=== PATIENT | female | born 1995 | race Caucasian/White ===

== ENCOUNTER 2017-04-08 17:08 | Emergency (ER) | payer OTHER ==
[2017-04-08 17:36] VITALS: BP 117/79; PULSE 74; RESP 16; TEMP 100
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
== END 2017-04-08 18:55 | disposition home or self-care (01) ==
LOC: EC 17:08
DX: S00.431A Contusion of right ear, initial encounter (principal); S00.12XA Contusion of left eyelid and periocular area, initial encounter; S09.90XA Unspecified injury of head, initial encounter; F17.200 Nicotine dependence, unspecified, uncomplicated; Y04.8XXA Assault by other bodily force, initial encounter
CPT/HCPCS: 70450; 99283

== ENCOUNTER 2018-04-04 06:00 | Inpatient (IN) | payer OTHER ==
[2018-04-04] MEDS ORDERED: CARBOPROST TROMETHAMINE 250 MCG/ML 1 ML AMP IM PRN (06:57)
[2018-04-04] MEDS ORDERED: OXYTOCIN 10 UNIT/ML 1 ML VIAL IM PRN (06:57)
[2018-04-04] MEDS ORDERED: METHYLERGONOVINE 0.2 MG/ML 1 ML AMP IM PRN (06:57)
[2018-04-04] MEDS ORDERED: TERBUTALINE 1 MG/ML VIAL SQ PRN (06:57)
[2018-04-04] MEDS ORDERED: LIDOCAINE 1% (PF) 10 MG/ML (30 ML SDV) SQ PRN (06:57)
[2018-04-04] MEDS ORDERED: OXYTOCIN 20 UNITS/1000 ML NS 1,000 ML IV SCH (07:00)
[2018-04-04] MEDS ORDERED: LACTATED RINGERS 1,000 ML IV SCH (07:00)
[2018-04-04 07:02] VITALS: BMI 34.9
[2018-04-04] MEDS: LACTATED RINGERS 1,000 ML IV SCH ×3 (07:12→13:00)
[2018-04-04 07:26] LABS: Basophils # (A) 0.1 k/uL (0-0.2); Basophils % (A) 0 %; Eosinophils # (A) 0.6 k/uL (0-0.7); Eosinophils % (A) 4 %; HCT 39.4 % (34.0-46.0); HGB 13.9 gm/dL (11.4-16.0); Lymphocytes # (A) 2.3 k/uL (1.0-4.8); Lymphocytes % (A) 16 %; MCH 31.5 pg (25.0-35.0); MCHC 35.2 g/dL (31.0-37.0); MCV 89.5 fL (80.0-100.0); Mean Platelet Volume 8.4; Monocytes # (A) 0.8 k/uL (0-1.0); Monocytes % (A) 6 %; Neutrophils # (A) 10.1 k/uL (1.3-7.7); Neutrophils % (A) 71 %; Platelet Count 297 k/uL (150-450); RBC 4.41 m/uL (3.80-5.40); RDW 12.7 % (11.5-15.5); WBC 14.1 k/uL (4.0-11.0)
[2018-04-04] MEDS ORDERED: SODIUM CHLORIDE 0.9% 100 ML BAG ONE (12:26)
[2018-04-04] MEDS ORDERED: BUPIVACAINE (PF) 0.25% 30 ML VIAL ONE (12:26)
[2018-04-04] MEDS ORDERED: fentaNYL (PF) 50 MCG/ML 5 ML AMP ONE (12:26)
[2018-04-04] MEDS ORDERED: diphenhydrAMINE 25 MG CAP PO PRN (16:26)
[2018-04-04] MEDS ORDERED: diphenhydrAMINE 50 MG CAP PO PRN (16:26)
[2018-04-04] MEDS ORDERED: BENZOCAINE/MENTHOL SPRAY 1 GM/SPRAY AEROSOL TOPICAL PRN (16:26)
[2018-04-04] MEDS ORDERED: LANOLIN CREAM 5 GM TUBE TOPICAL PRN (16:26)
[2018-04-04] MEDS ORDERED: HYDROCORTISONE 2.5% RECTAL CREAM 30 GM TUBE RECTAL PRN (16:26)
[2018-04-04] MEDS ORDERED: ZOLPIDEM 5 MG TAB PO PRN (16:26)
[2018-04-04] MEDS ORDERED: diphenhydrAMINE 50 MG/ML 1 ML VIAL IVP PRN ×2 (16:26)
[2018-04-04] MEDS ORDERED: IBUPROFEN 600 MG TAB PO PRN (16:26)
[2018-04-04] MEDS ORDERED: ACETAMINOPHEN TAB 325 MG TAB PO PRN (16:26)
[2018-04-04] MEDS ORDERED: WITCH HAZEL 1 EACH MED..PAD TOPICAL PRN (16:26)
[2018-04-04] MEDS ORDERED: SIMETHICONE 80 MG CHEWABLE PO PRN (16:26)
--- NOTE | 2018-04-04 16:28 | P.HPOB ---
History of Present Illness H&P Date: 04/04/18 Chief Complaint: Intrauterine at term: Induction of labor Illicit is a 22-year-old at 39 weeks 6 days gestation arise for induction of labor. Her Precis course has been generally unremarkable and she is feeling well at this time. Pertinent labs O+ blood type Rh antibody was negative. Rubella was immune, hepatitis B surface antigen as well as RPR HIV and GBS were all negative. Currently she is dilated to 1 cm 80% effaced -2 station and artificial rupture membranes was performed and clear fluid is noted. Assessment intrauterine at term. Plan expect spontaneous vaginal delivery. Past Medical History Past Medical History: No Reported History History of Any Multi-Drug Resistant Organisms: None Reported Past Surgical History: No Surgical Hx Reported Past Anesthesia/Blood Transfusion Reactions: No Reported Reaction Past Psychological History: No Psychological Hx Reported Smoking Status: Former smoker Past Alcohol Use History: None Reported Past Drug Use History: None Reported - Past Family History Mother Family Medical History: No Reported History Medications and Allergies Home Medications Medication Instructions Recorded Confirmed Type Pnv No.95/Ferrous Fum/Folic AC 1 tab PO ONCE 04/04/18 04/04/18 History [ Multivitamin Tablet] Allergies Allergy/AdvReac Type Severity Reaction Status Date / Time No Known Allergies Allergy Verified 04/08/17 17:36 Exam Osteopathic Statement: *. No significant issues noted on an osteopathic structural exam other than those noted in the History and Physical/Consult. - Vital Signs Vital signs: Vital Signs Temp Pulse Resp BP Pulse Ox 04/04/18 06:59 96.9 F L 96 16 141/89 97 Intake and Output 04/04/18 04/04/18 04/04/18 06:59 14:59 22:59 Other: Weight 104.326 kg - OBG Physical Exam Breast: both: normal (no masses) Abdomen: bowel sounds normal, no diffuse tenderness, no bruit present, no guarding noted, no hepatomegaly, no splenomegaly, no mass Vulva: both: normal Vagina: normal moisture, no discharge Cervix: no lesion, no discharge Uterus: normal size, normal contour Adnexa: both: normal Anus/Rectum: normal perianal skin, no rectal mass, no hemorrhoids, heme negative Results Result Diagrams: 04/04/18 07:02 Abnormal Lab Results - Last 24 Hours (Table) 05/23/18 Range/Units 07:02 WBC 14.1 H (4.0-11.0) k/uL Neutrophils # 10.1 H (1.3-7.7) k/uL
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
[2018-04-04 17:11] VITALS: RESP 16
[2018-04-04] MEDS: SENNOSIDES-DOCUSATE SODIUM 1 EACH TAB PO SCH (20:16)
[2018-04-05] MEDS: SENNOSIDES-DOCUSATE SODIUM 1 EACH TAB PO SCH (08:49)
--- NOTE | 2018-04-05 08:52 | P.PNOBGVD ---
Subjective - Subjective Principal diagnosis: day 1 Interval history: Doing very well. Involuting, voiding, and tolerating her diet. Patient reports: Reports appetite normal, Reports voiding normally, Reports pain well controlled, Reports ambulating normally [place]: doing well Objective - Latest Vital Signs Latest vital signs: Vital Signs Temp Pulse Resp BP 04/05/18 04:00 97.8 F 84 16 108/71 04/04/18 23:54 98.2 F 82 16 127/74 04/04/18 20:00 98.2 F 98 16 132/82 04/04/18 18:36 97 F L 110 H 16 134/84 04/04/18 18:06 96 16 146/67 04/04/18 17:36 96 16 129/87 04/04/18 17:21 82 16 125/61 04/04/18 17:06 96 16 134/82 04/04/18 16:49 94 14 133/81 04/04/18 16:36 96.7 F L 99 18 138/85 Intake and Output 04/04/18 04/05/18 04/05/18 22:59 06:59 14:59 Intake Total 600 Balance 600 Intake: Oral 600 Other: # Voids 1 1 - Exam Lungs: bilateral: normal Chest: Normal S1, Normal S2 Extremities: Present: normal Abdomen: Present: normal appearance, soft Uterus: Present: normal, firm
[2018-04-05 16:55] VITALS: BP 139/82; PULSE 78; TEMP 98
--- NOTE | 2018-04-14 09:09 | P.DS ---
Providers Date of admission: 04/04/18 06:47 Expected date of discharge: 04/14/18 Attending physician: Vick Reynoso [facility] Course: List went home postop day 1. She was involuting, voiding, and she is tolerating her diet. Voices no complaints. Vital signs stable and afebrile. Physical exam is unchanged from earlier in the day. Assessment day 1. Plan discharged home follow up with me in 6 weeks. Patient Condition at Discharge: Good Plan - Discharge Summary New Discharge Prescriptions: No Action Pnv No.95/Ferrous Fum/Folic AC [ Multivitamin Tablet] 1 tab PO ONCE Discharge Medication List Pnv No.95/Ferrous Fum/Folic AC [ Multivitamin Tablet] 1 tab PO ONCE [History] Follow up Appointment(s)/Referral(s): Vick Reynoso DO [Doctor of Osteopathic Medicine] - 1 Week Activity/Diet/Wound Care/Special Instructions: No heavy lifting, limit stairs and driving, and pelvic rest. If any high temperatures, heavy bleeding, or severe pain call my office Discharge Disposition: HOME SELF-CARE
== END 2018-04-05 17:41 | disposition home or self-care (01) | DRG 775 ==
LOC: 4FBP 06:47
PROVIDERS: ADMIT Obstetrics & Gynecology; ATTEND Obstetrics & Gynecology
PROC: 3E0R3NZ Introduction of Analgesics, Hypnotics, Sedatives into Spinal Canal, Percutaneous Approach (ICD-10-PCS; principal; 2018-04-04)
PROC: 10E0XZZ Delivery of Products of Conception, External Approach (ICD-10-PCS; principal; 2018-04-04)
PROC: 0HQ9XZZ Repair Perineum Skin, External Approach (ICD-10-PCS; principal; 2018-04-04)
PROC: 00HU33Z Insertion of Infusion Device into Spinal Canal, Percutaneous Approach (ICD-10-PCS; principal; 2018-04-04)
PROC: 10907ZC Drainage of Amniotic Fluid, Therapeutic from Products of Conception, Via Natural or Artificial Opening (ICD-10-PCS; principal; 2018-04-04)
DX: O69.81X0 Labor and delivery complicated by cord around neck, without compression, not applicable or unspecified (principal); Z37.0 Single live birth; O70.0 First degree perineal laceration during delivery; Z3A.39 39 weeks gestation of pregnancy; Z87.891 Personal history of nicotine dependence
CPT/HCPCS: 85025; 88305; 88307

== ENCOUNTER → 2019-10-30 | Outpatient (CLI) | payer OTHER ==
--- NOTE | 2019-10-31 07:06 | US ---
EXAMINATION TYPE: Transabdominal DATE OF EXAM: 10/30/2019 4:10 PM COMPARISON: NONE CLINICAL HISTORY: Z36 Confirm dates. Dates EXAM PERFORMED: Transabdominal (TA) EXAM MEASUREMENTS: GESTATIONAL AGE / DATING Dates by LMP: (10 weeks/5 days) EDC: 05/22/2020 Dates by Current Scan for: ( 8 weeks/6 days) EDC: 06/04/2020 MATERNAL ANATOMY Uterus: 10.8 x 8.1 x 6.6 cm Right Ovary: 3.0 x 1.4 x 1.8 cm Left Ovary: 3.7 x 2.1 x 2.2 cm Post CDS / Adnexa: no free fluid Presence of free fluid: no Presence of corpus luteal cyst: no Presence of subchorionic bleed: no GESTATION / SURVEY CRL: 2.2 cm (/8 weeks/6 days) MSD: seen, not measured Yolk Sac (normal less than 6mm): 2.7 mm Heart Rate: 171 bpm Rhythm: Normal IUP: Live IUP Date of LMP: 08/16/2019, Beta HcG (if available): Not available at this time Single live IUP measuring 8 weeks 6 days. IMPRESSION: Single live intrauterine with a sonographic age of 8 weeks and 6 days and jessi mated date of delivery of 06/04/2020, discordant with menstrual age. Heart rate of 171 bpm.
== END | disposition home or self-care (01) ==
LOC: RADUSWWP 15:50
PROVIDERS: ATTEND Obstetrics & Gynecology
DX: Z36.89 Encounter for other specified antenatal screening (principal); Z3A.08 8 weeks gestation of pregnancy
CPT/HCPCS: 76801

== ENCOUNTER 2020-06-01 06:00 | Inpatient (IN) | payer OTHER ==
[2020-06-01] MEDS ORDERED: LIDOCAINE 0.5% (PF) 5 MG/ML (50 ML SDV) SQ PRN (07:46)
[2020-06-01] MEDS ORDERED: CARBOPROST TROMETHAMINE 250 MCG/ML 1 ML AMP IM PRN (07:46)
[2020-06-01] MEDS ORDERED: TERBUTALINE 1 MG/ML VIAL SQ PRN (07:46)
[2020-06-01] MEDS ORDERED: METHYLERGONOVINE 0.2 MG/ML 1 ML AMP IM PRN (07:46)
[2020-06-01] MEDS ORDERED: OXYTOCIN 10 UNIT/ML 1 ML VIAL IM PRN (07:46)
[2020-06-01] MEDS: LACTATED RINGERS 1,000 ML IV SCH ×2 (07:57→15:18)
[2020-06-01] MEDS ORDERED: OXYTOCIN 30 UNITS/500 ML NS 30 UNIT in SALINE 1 500ML.BAG IV SCH (08:00)
[2020-06-01 08:09] LABS: Basophils # (A) 0.1 k/uL (0-0.2); Basophils % (A) 1 %; Eosinophils # (A) 0.3 k/uL (0-0.7); Eosinophils % (A) 2 %; HCT 41.7 % (34.0-46.0); Lymphocytes # (A) 2.3 k/uL (1.0-4.8); Lymphocytes % (A) 16 %; MCH 31.3 pg (25.0-35.0); MCHC 33.6 g/dL (31.0-37.0); MCV 93.2 fL (80.0-100.0); Mean Platelet Volume 9.4; Monocytes # (A) 0.7 k/uL (0-1.0); Monocytes % (A) 5 %; Neutrophils # (A) 10.6 k/uL (1.3-7.7); Neutrophils % (A) 74 %; Platelet Count 262 k/uL (150-450); RBC 4.48 m/uL (3.80-5.40); RDW 12.6 % (11.5-15.5); WBC 14.3 k/uL (3.8-10.6)
[2020-06-01] MEDS ORDERED: SODIUM CHLORIDE 0.9% 100 ML BAG ONE (13:45)
[2020-06-01] MEDS ORDERED: ROPIVACAINE 5MG/ML 20ML VIAL ONE (13:45)
[2020-06-01] MEDS ORDERED: fentaNYL (PF) 50 MCG/ML 5 ML AMP ONE (13:45)
[2020-06-01] MEDS ORDERED: diphenhydrAMINE 50 MG/ML 1 ML VIAL IVP PRN ×2 (20:51)
[2020-06-01] MEDS ORDERED: diphenhydrAMINE 25 MG CAP PO PRN (20:51)
[2020-06-01] MEDS ORDERED: BENZOCAINE/MENTHOL SPRAY 1 GM/SPRAY AEROSOL TOPICAL PRN (20:51)
[2020-06-01] MEDS ORDERED: diphenhydrAMINE 50 MG CAP PO PRN (20:51)
[2020-06-01] MEDS ORDERED: SIMETHICONE 80 MG CHEWABLE PO PRN (20:51)
[2020-06-01] MEDS ORDERED: ZOLPIDEM 5 MG TAB PO PRN (20:51)
[2020-06-01] MEDS ORDERED: HYDROCORTISONE 2.5% RECTAL CREAM 30 GM TUBE RECTAL PRN (20:51)
[2020-06-01] MEDS ORDERED: LANOLIN CREAM 5 GM TUBE TOPICAL PRN (20:51)
[2020-06-01] MEDS ORDERED: ACETAMINOPHEN TAB 325 MG TAB PO PRN (20:51)
--- NOTE | 2020-06-01 20:53 | P.HPOB ---
History of Present Illness H&P Date: 06/01/20 Chief Complaint: Intrauterine at term: Induction of labor Patient is a 25-year-old at 39 weeks gestation arise for induction of labor. Her Precis course was unremarkable and uneventful. She is feeling well at this time. Currently dilated to 1/2 cm 70% effaced -3 station. Artificial rupture membranes was performed and clear fluid is noted. Category 1 tracing is noted. [place] augmentation of labor is used and she expects using epidural for analgesia. All questions are answered for her and she is aware of risks of induction including potential increased risk for section. Past Medical History Past Medical History: Asthma History of Any Multi-Drug Resistant Organisms: None Reported Past Surgical History: No Surgical Hx Reported Past Anesthesia/Blood Transfusion Reactions: No Reported Reaction Past Psychological History: No Psychological Hx Reported Smoking Status: Current every day smoker, Light tobacco smoker Past Alcohol Use History: None Reported Past Drug Use History: None Reported - Past Family History Mother Family Medical History: No Reported History Medications and Allergies Home Medications Medication Instructions Recorded Confirmed Type Pnv No.95/Ferrous Fum/Folic AC 1 tab PO ONCE 04/04/18 06/01/20 History [ Multivitamin Tablet] Albuterol Inhaler [Ventolin Hfa 2 puff INHALATION DIRECTED 06/01/20 06/01/20 History Inhaler] Allergies Allergy/AdvReac Type Severity Reaction Status Date / Time No Known Allergies Allergy Verified 06/01/20 07:37 Exam Osteopathic Statement: *. No significant issues noted on an osteopathic structural exam other than those noted in the History and Physical/Consult. Vital Signs Temp Pulse Resp BP Pulse Ox 06/01/20 07:39 97.7 F 109 H 17 128/80 100 Intake and Output 06/01/20 06/01/20 06/01/20 06:59 14:59 22:59 Other: # Voids 1 Weight 99.79 kg - OBG Physical Exam Breast: both: normal (no masses) Abdomen: bowel sounds normal, no diffuse tenderness, no bruit present, no guarding noted, no hepatomegaly, no splenomegaly, no mass Vulva: both: normal Vagina: normal moisture, no discharge Cervix: no lesion, no discharge Uterus: normal size, normal contour Adnexa: both: normal Anus/Rectum: normal perianal skin, no rectal mass, no hemorrhoids, heme negative Results Result Diagrams: 06/01/20 07:55 Abnormal Lab Results - Last 24 Hours (Table) 06/01/20 Range/Units 07:55 WBC 14.3 H (3.8-10.6) k/uL Neutrophils # 10.6 H (1.3-7.7) k/uL
--- NOTE | 2020-06-01 20:54 | P.PROBDLV ---
Vaginal Delivery Note - . Vaginal Delivery Note: Patient progressed complete and pushing with spontaneous vaginal delivery of a viable female over an intact perineum. Following delivery of the head a nuchal cord 1 was noted and baby was delivered through the nuchal cord 1. There was a shoulder dystocia. Baby was delivered from left occiput anterior position. Once dystocia was noted patient was placed in a deep [place] position and when no anterior shoulder dissent was noted with gentle traction I did reach posteriorly grasp onto the axilla and and rotating a counterclockwise fashion while she was not pushing initially and then wash was pushed to deliver the baby the baby was easily delivered at that point. Once baby was fully delivered mouth nares were bulb suctioned and baby was placed mother's abdomen where the umbilical cord was clamped and cut in usual fashion. Nursery personnel was present and assumed care. Placenta was then delivered intact and Pitocin was added to the IV. scores were 8 and 9 at one and 5 minutes respectively and the weight was 8 lbs. 1 oz. Both mother and baby are stable following delivery.
[2020-06-01] MEDS ORDERED: OXYTOCIN 20 UNITS/1000 ML NS 1,000 ML IV SCH (21:00)
[2020-06-02] MEDS: IBUPROFEN 600 MG TAB PO PRN ×2 (07:51→14:02)
[2020-06-02] MEDS ORDERED: SENNOSIDES-DOCUSATE SODIUM 1 EACH TAB PO SCH (08:00)
--- NOTE | 2020-06-02 09:10 | P.DS ---
Providers Date of admission: 06/01/20 07:18 Expected date of discharge: 06/02/20 Attending physician: Vick Reynoso Primary care physician: Stated None Hospital Course: Patient is doing very well day 1. She is ambulating, voiding and she is tolerating her diet. She voices no complaints and requests discharged home tonight. Vital signs are stable and she is afebrile. Heart regular, lungs clear, extremities without pain. Abdomen is soft uterus is firm and lochia is reported to be light. Assessment day 1. Plan discharged home follow up with me in 6 weeks. Discharge instructions are otherwise reviewed and a prescription for Motrin was forwarded to her pharmacy. Patient Condition at Discharge: Good Plan - Discharge Summary New Discharge Prescriptions: New Ibuprofen [Motrin] 600 mg PO Q6HR PRN #30 tab PRN Reason: Pain No Action Pnv No.95/Ferrous Fum/Folic AC [ Multivitamin Tablet] 1 tab PO ONCE Albuterol Inhaler [Ventolin Hfa Inhaler] 2 puff INHALATION DIRECTED Discharge Medication List Pnv No.95/Ferrous Fum/Folic AC [ Multivitamin Tablet] 1 tab PO ONCE 04/04/18 [History] Albuterol Inhaler [Ventolin Hfa Inhaler] 2 puff INHALATION DIRECTED 06/01/20 [History] Ibuprofen [Motrin] 600 mg PO Q6HR PRN #30 tab 06/02/20 [Rx] Follow up Appointment(s)/Referral(s): Vick Reynoso DO [Doctor of Osteopathic Medicine] - 1 Week Activity/Diet/Wound Care/Special Instructions: No heavy lifting, limit stairs and driving, and pelvic rest. If any high temperatures, heavy bleeding, or severe pain call my office Discharge Disposition: HOME SELF-CARE
[2020-06-02 15:32] VITALS: BP 130/85; PULSE 82; RESP 16; TEMP 97.9
== END 2020-06-02 22:00 | disposition home or self-care (01) | DRG 807 ==
LOC: 4FBP 07:18
PROVIDERS: ADMIT Obstetrics & Gynecology; ATTEND Obstetrics & Gynecology
PROC: 10E0XZZ Delivery of Products of Conception, External Approach (ICD-10-PCS; principal; 2020-06-01)
PROC: 10907ZC Drainage of Amniotic Fluid, Therapeutic from Products of Conception, Via Natural or Artificial Opening (ICD-10-PCS; principal; 2020-06-01)
PROC: 00HU33Z Insertion of Infusion Device into Spinal Canal, Percutaneous Approach (ICD-10-PCS; principal; 2020-06-01)
PROC: 3E0R3BZ Introduction of Anesthetic Agent into Spinal Canal, Percutaneous Approach (ICD-10-PCS; principal; 2020-06-01)
DX: O69.81X0 Labor and delivery complicated by cord around neck, without compression, not applicable or unspecified (principal); Z37.0 Single live birth; O99.334 Smoking (tobacco) complicating childbirth; F17.210 Nicotine dependence, cigarettes, uncomplicated; O99.52 Diseases of the respiratory system complicating childbirth; J45.909 Unspecified asthma, uncomplicated; Z3A.39 39 weeks gestation of pregnancy
CPT/HCPCS: 85025; 86850; 86900; 86901

== ENCOUNTER 2021-02-02 08:26 | Emergency (ER) | payer OTHER ==
[2021-02-02] MEDS ORDERED: SODIUM CHLORIDE 0.9% 500 ML 500 ML IV ONE (08:44)
[2021-02-02] MEDS ORDERED: ACETAMINOPHEN TAB 325 MG TAB PO STA (09:29)
--- NOTE | 2021-02-02 09:37 | ED ---
General Adult HPI - General Chief complaint: Abdominal Pain Stated complaint: right side abd pain Time Seen by Provider: 02/02/21 08:32 Source: patient, RN notes reviewed Mode of arrival: ambulatory Limitations: no limitations - History of Present Illness Initial comments: 25-year-old male currently about 7 weeks with an LMP of December 16 the emergency room for chief collateral abdominal pain. Patient states she has right lower quadrant abdominal pain. States that this started today. Patient states she went to a clinic and they performed an ultrasound and did not see an intrauterine last week. She was due to return in 2 days to have this repeated however when the pain started she wanted to come into the ER. States that the clinic was concerned about ectopic. Patient has not seen her [employer] Dr. Reynoso for this. No vaginal bleeding.Patient has no other complaints at this time including shortness of breath, chest pain, nausea or vomiting, headache, or visual changes. - Related Data Home Medications Medication Instructions Recorded Confirmed No Known Home Medications 02/02/21 02/02/21 Allergies Allergy/AdvReac Type Severity Reaction Status Date / Time No Known Allergies Allergy Verified 02/02/21 09:02 Review of Systems ROS Statement: Those systems with pertinent positive or pertinent negative responses have been documented in the HPI. ROS Other: All systems not noted in ROS Statement are negative. Past Medical History Past Medical History: Asthma History of Any Multi-Drug Resistant Organisms: None Reported Past Surgical History: No Surgical Hx Reported Past Anesthesia/Blood Transfusion Reactions: No Reported Reaction Past Psychological History: No Psychological Hx Reported Smoking Status: Current every day smoker, Light tobacco smoker Past Alcohol Use History: None Reported Past Drug Use History: None Reported - Past Family History Mother Family Medical History: No Reported History General Exam Limitations: no limitations General appearance: alert, in no apparent distress Head exam: Present: atraumatic, normocephalic, normal inspection Eye exam: Present: normal appearance, PERRL, EOMI. Absent: scleral icterus, conjunctival injection, periorbital swelling ENT exam: Present: normal exam, mucous membranes moist Neck exam: Present: normal inspection, full ROM. Absent: tenderness, meningismus, lymphadenopathy Respiratory exam: Present: normal lung sounds bilaterally. Absent: respiratory distress, wheezes, rales, rhonchi, stridor Cardiovascular Exam: Present: regular rate, normal rhythm, normal heart sounds. Absent: systolic murmur, diastolic murmur, rubs, gallop, clicks GI/Abdominal exam: Present: soft, tenderness (tenderness RLQ), normal bowel sounds. Absent: distended, guarding, rebound, rigid External exam: Present: normal external exam. Absent: erythema, swelling, lesions, lacerations, ecchymosis Speculum exam: Present: normal speculum exam. Absent: erythema, vaginal discharge, cervical discharge, vaginal bleeding, foreign body By manual exam: Present: normal by manual exam. Absent: cervical motion tenderness, adnexal tenderness, adnexal mass, uterine enlargement, uterine tenderness Course Vital Signs 02/02/21 02/02/21 02/02/21 08:27 09:29 10:00 Temperature 98.0 F Pulse Rate 94 Respiratory 16 18 18 Rate Blood Pressure 137/79 O2 Sat by Pulse 98 Oximetry 02/02/21 10:59 Temperature Pulse Rate 64 Respiratory 18 Rate Blood Pressure 138/84 O2 Sat by Pulse 98 Oximetry - Reevaluation(s) Reevaluation #1: 02/02/21 11:05 Dr. Reynoso consulted, will be coming to see the patient in the emergency room Medical Decision Making - Medical Decision Making Vitals are stable. Patient is well-appearing. Patient does have some mild right lower quadrant tenderness. Pelvic exam unremarkable. CBC CMP is unremarkable. Urinalysis is negative. Patient does have an hCG Quant of 1933. Ultrasound shows nonvisualized intrauterine gestation. There is some free fluid in the pelvis with suspicious right pelvic extra ovarian adnexal mass is strongl y suspicious for ectopic . Dr. Reynoso did evaluate patient in the emergency room. Does feel this is ectopic that would be best treated with methotrexate. He did discussed the risks with the patient. He requests abated be repeated in 4 days and 7 days. He requests she call the office to make an appointment on the . Patient is aware that she must return to the emergency room if she develops worsening abdominal pain or bleeding. For discharge I did reevaluate the patient. Pain is much improved and she is stable for discharge. - Lab Data Result diagrams: 02/02/21 09:37 02/02/21 09:37 Lab Results 02/02/21 02/02/21 02/02/21 Range/Units 09:37 09:37 09:37 WBC 6.9 (3.8-10.6) k/uL RBC 4.87 (3.80-5.40) m/uL Hgb 15.7 (11.4-16.0) gm/dL Hct 43.5 (34.0-46.0) % MCV 89.5 (80.0-100.0) fL MCH 32.2 (25.0-35.0) pg MCHC 36.0 (31.0-37.0) g/dL RDW 11.7 (11.5-15.5) % Plt Count 303 (150-450) k/uL MPV 7.5 Neutrophils % 58 % Lymphocytes % 29 % Monocytes % 5 % Eosinophils % 5 % Basophils % 1 % Neutrophils # 4.0 (1.3-7.7) k/uL Lymphocytes # 2.0 (1.0-4.8) k/uL Monocytes # 0.3 (0-1.0) k/uL Eosinophils # 0.4 (0-0.7) k/uL Basophils # 0.0 (0-0.2) k/uL Sodium 137 (137-145) mmol/L Potassium 4.0 (3.5-5.1) mmol/L Chloride 108 H (98-107) mmol/L Carbon Dioxide 21 L (22-30) mmol/L Anion Gap 8 mmol/L BUN 11 (7-17) mg/dL Creatinine 0.53 (0.52-1.04) mg/dL Est GFR (CKD-EPI)AfAm >90 (>60 ml/min/1.73 sqM) Est GFR (CKD-EPI)NonAf >90 (>60 ml/min/1.73 sqM) Glucose 108 H (74-99) mg/dL Calcium 9.4 (8.4-10.2) mg/dL Total Bilirubin 0.7 (0.2-1.3) mg/dL AST 21 (14-36) U/L ALT 13 (4-34) U/L Alkaline Phosphatase 63 (38-126) U/L Total Protein 6.9 (6.3-8.2) g/dL Albumin 4.3 (3.5-5.0) g/dL HCG, Quant 1933.6 mIU/mL Urine Color Urine Appearance (Clear) Urine pH (5.0-8.0) Ur Specific [place] (1.001-1.035) Urine Protein (Negative) Urine Glucose (UA) (Negative) Urine Ketones (Negative) Urine Blood (Negative) Urine Nitrite (Negative) Urine Bilirubin (Negative) Urine Urobilinogen (<2.0) mg/dL Ur Leukocyte Esterase (Negative) Urine RBC (0-5) /hpf Urine WBC (0-5) /hpf Ur Squamous Epith Cells (0-4) /hpf Amorphous Sediment (None) /hpf Hyaline Casts (0-2) /lpf Urine Mucus (None) /hpf Blood Type O Positive Blood Type Recheck O Pos Bld Type Recheck Status No Antibody Screen NEGATIVE 02/02/21 Range/Units 10:34 WBC (3.8-10.6) k/uL RBC (3.80-5.40) m/uL Hgb (11.4-16.0) gm/dL Hct (34.0-46.0) % MCV (80.0-100.0) fL MCH (25.0-35.0) pg MCHC (31.0-37.0) g/dL RDW (11.5-15.5) % Plt Count (150-450) k/uL MPV Neutrophils % % Lymphocytes % % Monocytes % % Eosinophils % % Basophils % % Neutrophils # (1.3-7.7) k/uL Lymphocytes # (1.0-4.8) k/uL Monocytes # (0-1.0) k/uL Eosinophils # (0-0.7) k/uL Basophils # (0-0.2) k/uL Sodium (137-145) mmol/L Potassium (3.5-5.1) mmol/L Chloride (98-107) mmol/L Carbon Dioxide (22-30) mmol/L Anion Gap mmol/L BUN (7-17) mg/dL Creatinine (0.52-1.04) mg/dL Est GFR (CKD-EPI)AfAm (>60 ml/min/1.73 sqM) Est GFR (CKD-EPI)NonAf (>60 ml/min/1.73 sqM) Glucose (74-99) mg/dL Calcium (8.4-10.2) mg/dL Total Bilirubin (0.2-1.3) mg/dL AST (14-36) U/L ALT (4-34) U/L Alkaline Phosphatase (38-126) U/L Total Protein (6.3-8.2) g/dL Albumin (3.5-5.0) g/dL HCG, Quant mIU/mL Urine Color Yellow Urine Appearance Cloudy H (Clear) Urine pH 7.0 (5.0-8.0) Ur Specific [place] 1.025 (1.001-1.035) Urine Protein Trace H (Negative) Urine Glucose (UA) Negative (Negative) Urine Ketones Negative (Negative) Urine Blood Negative (Negative) Urine Nitrite Negative (Negative) Urine Bilirubin Negative (Negative) Urine Urobilinogen <2.0 (<2.0) mg/dL Ur Leukocyte Esterase Negative (Negative) Urine RBC 1 (0-5) /hpf Urine WBC 1 (0-5) /hpf Ur Squamous Epith Cells 6 H (0-4) /hpf Amorphous Sediment Rare H (None) /hpf Hyaline Casts 1 (0-2) /lpf Urine Mucus Moderate H (None) /hpf Blood Type Blood Type Recheck Bld Type Recheck Status Antibody Screen Disposition Clinical Impression: Ectopic Disposition: HOME SELF-CARE Condition: Good Instructions (If sedation given, give patient instructions): Ectopic (DC) Additional Instructions: Please call Dr. Reynoso's office today to schedule an appointment on the . You must repeat your beta hCG at work on the and . If you start to have worsening abdominal pain at home or any other worsening symptoms you need to return immediately to the emergency room. Is patient prescribed a controlled substance at d/c from ED?: No Referrals: Vick Reynoso DO [Doctor of Osteopathic Medicine] - 1-2 days Time of Disposition: 12:09
[2021-02-02 09:49] VITALS: RESP 18
[2021-02-02 10:04] LABS: Basophils % (A) 1 %; Eosinophils # (A) 0.4 k/uL (0-0.7); Eosinophils % (A) 5 %; HCT 43.5 % (34.0-46.0); HGB 15.7 gm/dL (11.4-16.0); Lymphocytes % (A) 29 %; MCH 32.2 pg (25.0-35.0); MCV 89.5 fL (80.0-100.0); Mean Platelet Volume 7.5; Monocytes # (A) 0.3 k/uL (0-1.0); Monocytes % (A) 5 %; Neutrophils % (A) 58 %; Platelet Count 303 k/uL (150-450); RBC 4.87 m/uL (3.80-5.40); RDW 11.7 % (11.5-15.5); WBC 6.9 k/uL (3.8-10.6)
[2021-02-02 10:10] LABS: HCG,Quantitative Serum 1933.6 mIU/mL
[2021-02-02 10:19] LABS: ALT 13 U/L (4-34); AST 21 U/L (14-36); African American GFR (CKD) >90 (>60 ml/min/1.73 sqM); Albumin 4.3 g/dL (3.5-5.0); Alkaline Phosphatase 63 U/L (38-126); Anion Gap 8 mmol/L; Blood Urea Nitrogen 11 mg/dL (7-17); Calcium 9.4 mg/dL (8.4-10.2); Carbon Dioxide 21 mmol/L (22-30); Chloride 108 mmol/L (98-107); Glucose 108 mg/dL (74-99); Non-African American GFR(CKD) >90 (>60 ml/min/1.73 sqM); Sodium 137 mmol/L (137-145); Total Bilirubin 0.7 mg/dL (0.2-1.3); Total Protein 6.9 g/dL (6.3-8.2)
[2021-02-02 10:40] LABS: Amorphous Sediment,Urine Rare /hpf; Appearance,Urine Cloudy (Clear); Bilirubin,Urine Negative (Negative); Blood,Urine Negative (Negative); Color,Urine Yellow; Glucose,Urine (UA) Negative (Negative); Hyaline Casts,Urine 1 /lpf (0-2); Ketones,Urine Negative (Negative); Leukocyte Esterase,Urine Negative (Negative); Mucus,Urine Moderate /hpf; Nitrite,Urine Negative (Negative); Protein,Urine Trace (Negative); RBC,Urine 1 /hpf (0-5); Specific Gravity,Urine 1.025 (1.001-1.035); Squamous Epithelial Cell,Urine 6 /hpf (0-4); Urobilinogen,Urine <2.0 mg/dL (<2.0); WBC,Urine 1 /hpf (0-5)
--- NOTE | 2021-02-02 10:43 | US ---
EXAMINATION TYPE: Transabdominal DATE OF EXAM: 02/02/2021 10:15 AM COMPARISON: NONE CLINICAL HISTORY: pain. Right pelvic pain today with minimal vaginal spotting; one week ago had [facility] US with possible ectopic vs. too early to see gestational sac. Positive beta-hCG test. EXAM PERFORMED: Transvaginal (TV) and Transabdominal (TA) EXAM MEASUREMENTS: GESTATIONAL AGE / DATING Physician Established: Not yet established Dates by LMP: (7 weeks/4 days) EDC: 09/17/2021 Dates by First Scan: No previous scan here Dates by Current Scan for: out of machine's range MATERNAL ANATOMY Uterus: 9.5 x 5.8 x 4.7cm Right Ovary: 2.9 x 3.1 x 1.8cm Left Ovary: 3.3 x 1.6 x 1.8cm Post CDS / Adnexa: free fluid = 0.5 x 0.9 x 0.5cm is noted adjacent to hyperechoic oval mass between right ovary and uterus Presence of free fluid: see above Presence of corpus luteal cyst: not seen GESTATION / SURVEY MSD: 0.5 x 0.5 x 0.6cm and is too early for dates Date of LMP: 12/11/2020 Beta HcG (if available): 1933.6 No IUP seen. Two small endometrial cysts seen in mid upper endometrium. Possible ectopic se en = 1.3 x 1.2 x 1.3cm and is medial to right ovary and is hyperechoic to right ovary. Heterogeneous anteverted uterus. Endometrium thickened to 18 mm. No gestational sac, yolk sac, or fet al pole present. A few tiny nabothian cyst in cervix. Right ovary seen and normal in size with scattered peripheral follicles. Adjacent right ovary there i s thick walled anechoic structure with tiny amount of adjacent free fluid. No pole or live fetu s identified. Left ovary seen towards the study with few scattered peripheral follicles. IMPRESSION: Nonvisualized intrauterine gestation. There is some free fluid in pelvis with suspicious right pelvic extraovarian adnexal mass. Findings strongly suspicious for ectopic . Correlati on with beta-hCG values is advised as differential still includes to relate to visualize intrauterine gestation but the above findings significantly increased suspicion for ectopic .
[2021-02-02] MEDS ORDERED: METHOTREXATE SODIUM (PF) 25 MG/ML 2 ML VIAL IM STA (11:59)
--- NOTE | 2021-02-02 12:17 | P.OBCN ---
History of Present Illness Consult date: 02/02/21 Requesting physician: Elijah Rolon Reason for consult: early problem Chief complaint: ectopic History of present illness: Patient is a 25-year-old female who arrives to the emergency room with some right lower quadrant pain. She relates that earlier the day she has significant increase in right lower quadrant pain and was concerned as she knew that she had a positive test and was brought to the emergency room. She relates that last Monday she was seen by a clinic that does elective terminations and they did an ultrasound and did not see anything in the uterus at that time and told her to follow up in a week and a half. No blood work was done. Today blood work was done and shows a quantitative beta hCG of 1900. She had another ultrasound done showing a 1 3 x 1.2 x 1.3 cm right suspected ectopic . There is 0.9 cm fluid adjacent to it. There is no evidence for rupture of the ectopic. She is hemodynamically stable and her vital signs are stable. She and I had a very long discussion on treatment options including either methotrexate or laparoscopy. She does not want surgery at this time. She is therefore going to receive 50 mg per metered squared of methotrexate she is aware to discontinue any vitamin or folic acid. Discussion on signs and symptoms of ruptured ectopic were again reviewed in great detail including pain lightheadedness signs symptoms of hypovolemia. We did discuss that in 2 or 3 days she may have an increase in her pain due to the being terminated by the methotrexate but as long as Motrin or Tylenol help with this pain she may be able to antigen at home, but if she has severe pain she was to return to the emergency room immediately. She is going to do repeat beta hCGs in 4 days and in 7 days and if we see a 15-20% decrease in these values in that timeframe then we will continue to follow it with weekly blood quantitative hCGs until it is 0. All these things were reviewed with the patient in great detail and she is aware of side effects like gastrointestinal symptoms etc. of methotrexate On physical exam vital signs are stable and afebrile. Heart regular, lungs clear, extremities without pain. Abdomen soft it is nontender on my exam there are no peritoneal signs no rigidity/rebound or guarding. Pelvic exam was done and no significant pain or masses are noted on exam. Assessment ectopic plan methotrexate therapy with very close outpatient follow-up Past Medical History Past Medical History: Asthma History of Any Multi-Drug Resistant Organisms: None Reported Past Surgical History: No Surgical Hx Reported Past Anesthesia/Blood Transfusion Reactions: No Reported Reaction Past Psychological History: No Psychological Hx Reported Smoking Status: Current every day smoker, Light tobacco smoker Past Alcohol Use History: None Reported Past Drug Use History: None Reported - Past Family History Mother Family Medical History: No Reported History Medications and Allergies Home Medications Medication Instructions Recorded Confirmed Type No Known Home Medications 02/02/21 02/02/21 History Allergies Allergy/AdvReac Type Severity Reaction Status Date / Time No Known Allergies Allergy Verified 02/02/21 09:02 Exam Osteopathic Statement: *. No significant issues noted on an osteopathic structural exam other than those noted in the History and Physical/Consult. Vital Signs Temp Pulse Resp BP Pulse Ox 02/02/21 10:59 64 18 138/84 98 02/02/21 10:00 18 02/02/21 09:29 18 02/02/21 08:27 98.0 F 94 16 137/79 98 Intake and Output 02/01/21 02/02/21 02/02/21 22:59 06:59 14:59 Other: Weight 90.718 kg Results Result Diagrams: 02/02/21 09:37 02/02/21 09:37 Abnormal Lab Results - Last 24 Hours (Table) 02/02/21 02/02/21 Range/Units 09:37 10:34 Chloride 108 H (98-107) mmol/L Carbon Dioxide 21 L (22-30) mmol/L Glucose 108 H (74-99) mg/dL Urine Appearance Cloudy H (Clear) Urine Protein Trace H (Negative) Ur Squamous Epith Cells 6 H (0-4) /hpf Amorphous Sediment Rare H (None) /hpf Urine Mucus Moderate H (None) /hpf
[2021-02-02 13:31] VITALS: BP 142/83; PULSE 69; TEMP 98.4
== END 2021-02-02 13:31 | disposition home or self-care (01) ==
LOC: EC 08:26
DX: O00.90 Unspecified ectopic pregnancy without intrauterine pregnancy (principal); O99.331 Smoking (tobacco) complicating pregnancy, first trimester; O99.511 Diseases of the respiratory system complicating pregnancy, first trimester; J45.909 Unspecified asthma, uncomplicated; F17.200 Nicotine dependence, unspecified, uncomplicated; Z3A.01 Less than 8 weeks gestation of pregnancy
CPT/HCPCS: 36415; 86900; 86901; 80053; 85025; 86850; 81001; 84702; 76801; 76817; 99284; 96372; J9260

== ENCOUNTER 2021-02-03 19:24 | Emergency (ER) | payer OTHER ==
[2021-02-03 20:26] VITALS: BP 145/93; PULSE 78; RESP 18; TEMP 98.1
--- NOTE | 2021-02-03 20:49 | ED ---
Abdominal Pain HPI - General Chief Complaint: Abdominal Pain Stated Complaint: ectopic -revisit Time Seen by Provider: 02/03/21 20:35 Source: patient Mode of arrival: ambulatory Limitations: no limitations - History of Present Illness Initial Comments: 25-year-old female patient who is G3, P2, A0, presents to the emergency department today for evaluation of right lower quadrant abdominal pain. Patient was seen and evaluated for the same yesterday diagnosed with an ectopic . She did receive methotrexate injection and was instructed to return if her symptoms worsened. Patient states that her symptoms worsened throughout the night and day today. States she's been having "excruciating" pain to the right lower quadrant radiating through to her back. Reports a pain and pressure in her rectum. The pain radiates down the right leg at times. States she is having a brownish vaginal discharge. Denies any dizziness or fainting. Patient denies any recent rash, fever, chills, cough, shortness of breath, chest pain, nausea, vomiting, diarrhea, constipation, numbness, tingling, dizziness, weakness, hematuria, dysuria, urinary urgency, urinary frequency, headache, visual changes, or any other complaints. - Related Data Home Medications Medication Instructions Recorded Confirmed No Known Home Medications 02/02/21 02/03/21 Allergies Allergy/AdvReac Type Severity Reaction Status Date / Time No Known Allergies Allergy Verified 02/03/21 22:44 Review of Systems ROS Statement: Those systems with pertinent positive or pertinent negative responses have been documented in the HPI. ROS Other: All systems not noted in ROS Statement are negative. Past Medical History Past Medical History: Asthma Additional Past Medical History / Comment(s): ectopic History of Any Multi-Drug Resistant Organisms: None Reported Past Surgical History: No Surgical Hx Reported Past Anesthesia/Blood Transfusion Reactions: No Reported Reaction Past Psychological History: No Psychological Hx Reported Smoking Status: Current every day smoker, Light tobacco smoker Past Alcohol Use History: Occasional Past Drug Use History: Marijuana - Past Family History Mother Family Medical History: No Reported History General Exam Limitations: no limitations General appearance: alert, in no apparent distress, other (This is a well- developed, well-nourished adult female patient in no acute distress. Vital signs upon presentation are temperature 98.1F, pulse 78, respirations 18, blood pressure 145/93, pulse ox 98% on room air.) Eye exam: Present: normal appearance, PERRL, EOMI. Absent: scleral icterus, conjunctival injection, periorbital swelling ENT exam: Present: normal exam, normal oropharynx, mucous membranes moist Respiratory exam: Present: normal lung sounds bilaterally. Absent: respiratory distress, wheezes, rales, rhonchi, stridor Cardiovascular Exam: Present: regular rate, normal rhythm, normal heart sounds. Absent: systolic murmur, diastolic murmur, rubs, gallop, clicks GI/Abdominal exam: Present: soft, tenderness (Right lower quadrant), normal bowel sounds. Absent: distended, guarding, rebound, rigid Neurological exam: Present: alert, oriented X3, CN II-XII intact Psychiatric exam: Present: normal affect, normal mood Skin exam: Present: warm, dry, intact, normal color. Absent: rash Course Vital Signs 02/03/21 20:23 Temperature 98.1 F Pulse Rate 78 Respiratory 18 Rate Blood Pressure 145/93 O2 Sat by Pulse 98 Oximetry Medical Decision Making - Medical Decision Making 25-year-old female patient presents to the emergency department today for evaluation of increased right lower quadrant abdominal pain after being diagnosed with ectopic yesterday. Physical examination did reveal right lower quadrant tenderness. Labs reviewed and did reveal decreased hCG to 528.1. Urinalysis is unremarkable. Ultrasound was obtained and did show a gestational sac ectopic in the right adnexa. She did receive methotrexate last night for this. This area as well as the free fluid in the cul-de-sac is slightly increased compared to yesterday. HCG is decreased from 1900 to 528. I did call and discuss the case with on-call [employer] Dr. Linares, discussed patient's current symptoms, lab findings, ultrasound results. At this time patient is stable for discharge. She does have follow up appointment and lab draws scheduled. She'll be discharged to follow-up as soon as possible. Return parameters were discussed in detail. She verbalizes understanding and agrees with this plan. Case discussed with my attending Dr. Giraldo. - Lab Data Result diagrams: 02/03/21 21:06 02/03/21 21:06 Lab Results 02/03/21 02/03/21 02/03/21 Range/Units 21:01 21:01 21:06 WBC 9.7 (3.8-10.6) k/uL RBC 5.18 (3.80-5.40) m/uL Hgb 16.7 H (11.4-16.0) gm/dL Hct 45.9 (34.0-46.0) % MCV 88.7 (80.0-100.0) fL MCH 32.3 (25.0-35.0) pg MCHC 36.4 (31.0-37.0) g/dL RDW 11.5 (11.5-15.5) % Plt Count 350 (150-450) k/uL MPV 7.5 Neutrophils % 67 % Lymphocytes % 25 % Monocytes % 4 % Eosinophils % 2 % Basophils % 0 % Neutrophils # 6.5 (1.3-7.7) k/uL Lymphocytes # 2.4 (1.0-4.8) k/uL Monocytes # 0.4 (0-1.0) k/uL Eosinophils # 0.2 (0-0.7) k/uL Basophils # 0.0 (0-0.2) k/uL PT (9.0-12.0) sec INR (<1.2) APTT (22.0-30.0) sec Sodium (137-145) mmol/L Potassium (3.5-5.1) mmol/L Chloride (98-107) mmol/L Carbon Dioxide (22-30) mmol/L Anion Gap mmol/L BUN (7-17) mg/dL Creatinine (0.52-1.04) mg/dL Est GFR (CKD-EPI)AfAm (>60 ml/min/1.73 sqM) Est GFR (CKD-EPI)NonAf (>60 ml/min/1.73 sqM) Glucose (74-99) mg/dL Calcium (8.4-10.2) mg/dL Total Bilirubin (0.2-1.3) mg/dL AST (14-36) U/L ALT (4-34) U/L Alkaline Phosphatase (38-126) U/L Total Protein (6.3-8.2) g/dL Albumin (3.5-5.0) g/dL HCG, Quant mIU/mL Urine Color Yellow Urine Appearance Cloudy H (Clear) Urine pH 6.0 (5.0-8.0) Ur Specific [place] 1.032 (1.001-1.035) Urine Protein 1+ H (Negative) Urine Glucose (UA) Negative (Negative) Urine Ketones 2+ H (Negative) Urine Blood Large H (Negative) Urine Nitrite Negative (Negative) Urine Bilirubin Negative (Negative) Urine Urobilinogen 3.0 (<2.0) mg/dL Ur Leukocyte Esterase Moderate H (Negative) Urine RBC 3 (0-5) /hpf Urine WBC 6 H (0-5) /hpf Ur Squamous Epith Cells 37 H (0-4) /hpf Urine Bacteria Rare H (None) /hpf Hyaline Casts 2 (0-2) /lpf Urine Mucus Many H (None) /hpf Urine Sperm Rare (None) /hpf Urine HCG, Qual Detected (Not Detectd) 02/03/21 02/03/21 02/03/21 Range/Units 21:06 21:06 21:06 WBC (3.8-10.6) k/uL RBC (3.80-5.40) m/uL Hgb (11.4-16.0) gm/dL Hct (34.0-46.0) % MCV (80.0-100.0) fL MCH (25.0-35.0) pg MCHC (31.0-37.0) g/dL RDW (11.5-15.5) % Plt Count (150-450) k/uL MPV Neutrophils % % Lymphocytes % % Monocytes % % Eosinophils % % Basophils % % Neutrophils # (1.3-7.7) k/uL Lymphocytes # (1.0-4.8) k/uL Monocytes # (0-1.0) k/uL Eosinophils # (0-0.7) k/uL Basophils # (0-0.2) k/uL PT 10.2 (9.0-12.0) sec INR 0.9 (<1.2) APTT 23.8 (22.0-30.0) sec Sodium 137 (137-145) mmol/L Potassium 3.6 (3.5-5.1) mmol/L Chloride 104 (98-107) mmol/L Carbon Dioxide 23 (22-30) mmol/L Anion Gap 10 mmol/L BUN 11 (7-17) mg/dL Creatinine 0.61 (0.52-1.04) mg/dL Est GFR (CKD-EPI)AfAm >90 (>60 ml/min/1.73 sqM) Est GFR (CKD-EPI)NonAf >90 (>60 ml/min/1.73 sqM) Glucose 116 H (74-99) mg/dL Calcium 9.7 (8.4-10.2) mg/dL Total Bilirubin 1.0 (0.2-1.3) mg/dL AST 21 (14-36) U/L ALT 14 (4-34) U/L Alkaline Phosphatase 65 (38-126) U/L Total Protein 7.7 (6.3-8.2) g/dL Albumin 4.8 (3.5-5.0) g/dL HCG, Quant 528.1 mIU/mL Urine Color Urine Appearance (Clear) Urine pH (5.0-8.0) Ur Specific [place] (1.001-1.035) Urine Protein (Negative) Urine Glucose (UA) (Negative) Urine Ketones (Negative) Urine Blood (Negative) Urine Nitrite (Negative) Urine Bilirubin (Negative) Urine Urobilinogen (<2.0) mg/dL Ur Leukocyte Esterase (Negative) Urine RBC (0-5) /hpf Urine WBC (0-5) /hpf Ur Squamous Epith Cells (0-4) /hpf Urine Bacteria (None) /hpf Hyaline Casts (0-2) /lpf Urine Mucus (None) /hpf Urine Sperm (None) /hpf Urine HCG, Qual (Not Detectd) - Radiology Data Radiology results: report reviewed, image reviewed Ultrasound of the pelvis is obtained. Report is reviewed in its entirety. Impression by Dr. Richards shows empty uterus. Possible ectopic gestational sac in the right adnexal region. Which is a change compared to yesterday. There is some free fluid in the cul-de-sac increased compared to yesterday. No evidence of ovarian torsion. Disposition Clinical Impression: Ectopic Disposition: HOME SELF-CARE Condition: Good Instructions (If sedation given, give patient instructions): Ectopic (DC) Additional Instructions: Take pain medication as directed. Follow-up with Dr. Reynoso and follow-up for lab draws as directed. Return to the emergency department for any new, w orsening, or concerning symptoms. Is patient prescribed a controlled substance at d/c from ED?: No Referrals: Vick Reynoso DO [Doctor of Osteopathic Medicine] - 1-2 days Time of Disposition: 23:09
[2021-02-03 21:11] LABS: Appearance,Urine Cloudy (Clear); Bacteria,Urine Rare /hpf; Bilirubin,Urine Negative (Negative); Blood,Urine Large (Negative); Color,Urine Yellow; Glucose,Urine (UA) Negative (Negative); Hyaline Casts,Urine 2 /lpf (0-2); Ketones,Urine 2+ (Negative); Leukocyte Esterase,Urine Moderate (Negative); Mucus,Urine Many /hpf; Nitrite,Urine Negative (Negative); Protein,Urine 1+ (Negative); RBC,Urine 3 /hpf (0-5); Specific Gravity,Urine 1.032 (1.001-1.035); Sperm,Urine Rare /hpf; Squamous Epithelial Cell,Urine 37 /hpf (0-4); WBC,Urine 6 /hpf (0-5)
[2021-02-03 21:19] LABS: Basophils % (A) 0 %; Eosinophils # (A) 0.2 k/uL (0-0.7); Eosinophils % (A) 2 %; HCT 45.9 % (34.0-46.0); HGB 16.7 gm/dL (11.4-16.0); Lymphocytes # (A) 2.4 k/uL (1.0-4.8); Lymphocytes % (A) 25 %; MCH 32.3 pg (25.0-35.0); MCHC 36.4 g/dL (31.0-37.0); MCV 88.7 fL (80.0-100.0); Mean Platelet Volume 7.5; Monocytes # (A) 0.4 k/uL (0-1.0); Monocytes % (A) 4 %; Neutrophils # (A) 6.5 k/uL (1.3-7.7); Neutrophils % (A) 67 %; Platelet Count 350 k/uL (150-450); RBC 5.18 m/uL (3.80-5.40); RDW 11.5 % (11.5-15.5); WBC 9.7 k/uL (3.8-10.6)
[2021-02-03 21:30] LABS: INR 0.9 (<1.2)
[2021-02-03 21:31] LABS: Partial Thromboplastin Time 23.8 sec (22.0-30.0); Prothrombin Time 10.2 sec (9.0-12.0)
[2021-02-03 21:48] LABS: ALT 14 U/L (4-34); AST 21 U/L (14-36); African American GFR (CKD) >90 (>60 ml/min/1.73 sqM); Albumin 4.8 g/dL (3.5-5.0); Alkaline Phosphatase 65 U/L (38-126); Anion Gap 10 mmol/L; Blood Urea Nitrogen 11 mg/dL (7-17); Calcium 9.7 mg/dL (8.4-10.2); Carbon Dioxide 23 mmol/L (22-30); Chloride 104 mmol/L (98-107); Glucose 116 mg/dL (74-99); Non-African American GFR(CKD) >90 (>60 ml/min/1.73 sqM); Potassium 3.6 mmol/L (3.5-5.1); Sodium 137 mmol/L (137-145); Total Protein 7.7 g/dL (6.3-8.2)
--- NOTE | 2021-02-03 22:34 | US ---
EXAMINATION TYPE: Transabdominal DATE OF EXAM: 02/03/2021 10:15 PM COMPARISON: US yesterday 02/02/21 CLINICAL HISTORY: Rt adnexal ectopic, worse pain today. Right adnexal ectopic, patient had ultrasound yesterday. Worse pain today. . Doppler ovaries per [employer]GET[employer]. EXAM PERFORMED: Transvaginal (TV) and Transabdominal (TA) EXAM MEASUREMENTS: GESTATIONAL AGE / DATING Dates by LMP: ( 7 weeks/5 days) EDC: 09/17/2021 Dates by First Scan: Possible ectopic gestational sac measured out of range. Dates by Current Scan for: Possible ectopic gestational sac measures out of range. MATERNAL ANATOMY Uterus: 8.6 x 6.6 x 4.5 cm. Anteverted. Subcentimeter hypoechoic area seen in cervix. Endometrium galen sures 1.45 cm. Right Ovary: 4.7 x 2.2 x 2.5 cm. Appears slightly enlarged. Arterial and venous waveforms seen. Left Ovary: 3.3 x 1.9 x 2.3 cm. Arterial and venous waveforms seen. Post CDS / Adnexa: *Solid area with anechoic component seen in right adnexa between right ovary and u terus measurin.9 x 1.3 x 1.5 cm. Fluid seen in CDS: 1.3 x 2.4 x 1.6 cm. Presence of free fluid: yes, as mentioned above in CDS. Presence of corpus luteal cyst: Not seen GESTATION / SURVEY) MSD: Area seen within right adnexa: 0.58 cm. (OOR) Date of LMP: 12/11/2020 Beta HcG (if available): Detected IMPRESSION: Empty uterus. Possible ectopic gestational sac in the right adnexal region. Which is a change compare d to yesterday. There is some free fluid in the cul-de-sac increased compared to yesterday. No evidence of ovarian torsion. This exam was discussed with Emily Toscano at 10:30 PM.
[2021-02-03] MEDS ORDERED: ONDANSETRON 4 MG/2 ML VIAL IVP STA (23:07)
[2021-02-03] MEDS ORDERED: MORPHINE SULFATE 4 MG/ML SYRINGE IVP STA (23:07)
[2021-02-03] MEDS ORDERED: ACET/COD 300 MG/30 MG STARTER PACK 6 TAB BTL PO STA (23:08)
== END 2021-02-03 23:25 | disposition home or self-care (01) ==
LOC: EC 19:24
DX: O00.80 Other ectopic pregnancy without intrauterine pregnancy (principal); O99.331 Smoking (tobacco) complicating pregnancy, first trimester; F17.210 Nicotine dependence, cigarettes, uncomplicated; Z3A.01 Less than 8 weeks gestation of pregnancy
CPT/HCPCS: 36415; 80053; 85025; 85610; 85730; 81001; 81025; 84702; 93975; 76801; 76817; 99284; 96374; 96375; J2270; J2405

== ENCOUNTER → 2021-02-26 | Outpatient (CLI) | payer OTHER | END | disposition home or self-care (01) | LOC: LABWHC1 16:18 | PROVIDERS: ATTEND Obstetrics & Gynecology | DX: O00.90 Unspecified ectopic pregnancy without intrauterine pregnancy (principal); Z3A.00 Weeks of gestation of pregnancy not specified | CPT/HCPCS: 36415; 84702 ==

== ENCOUNTER 2022-09-18 08:17 | Inpatient (IN) | payer OTHER ==
[2022-09-18] MEDS ORDERED: CITRIC ACID-SODIUM CITRATE 15 ML CUP PO ONE (09:07)
[2022-09-18] MEDS ORDERED: LACTATED RINGERS 1,000 ML IV ONE (09:07)
[2022-09-18 09:29] LABS: Basophils # (A) 0.1 k/uL (0-0.2); Basophils % (A) 0 %; Eosinophils # (A) 0.2 k/uL (0-0.7); Eosinophils % (A) 2 %; HCT 39.3 % (34.0-46.0); HGB 14.3 gm/dL (11.4-16.0); Lymphocytes # (A) 2.2 k/uL (1.0-4.8); Lymphocytes % (A) 17 %; MCH 32.2 pg (25.0-35.0); MCHC 36.3 g/dL (31.0-37.0); MCV 88.5 fL (80.0-100.0); Mean Platelet Volume 9.3; Monocytes # (A) 0.5 k/uL (0-1.0); Monocytes % (A) 4 %; Neutrophils # (A) 9.3 k/uL (1.3-7.7); Neutrophils % (A) 74 %; Platelet Count 295 k/uL (150-450); RBC 4.44 m/uL (3.80-5.40); RDW 12.8 % (11.5-15.5); WBC 12.6 k/uL (3.8-10.6)
--- NOTE | 2022-09-18 09:45 | P.HPOB ---
History of Present Illness H&P Date: 09/18/22 Chief Complaint: Leaking of fluid, no care This patient is a 27-year-old 4 para 2 female estimated date of confinement 09/15/2022 based on an ultrasound done at 28 weeks who presents to labor and delivery with complaints of leaking of fluid. Patient's had no care throughout the however did have an ultrasound done at 28 weeks and did have battery done by Dr. Damico when she was here for previous triage visit. Patient's past obstetrical history is significant for a shoulder dystocia with Dr. Reynoso and 2020. I did review her delivery notes appears it required multiple maneuvers to deliver this baby. Fortunately there was no sequela. Patient obviously has not been counseled this that she's had no care as to route of delivery. Review of her records also shows positive for marijuana use otherwise uncomplicated. Review of Systems Genitourinary: Reports Past Medical History Past Medical History: Asthma Additional Past Medical History / Comment(s): ectopic; 2 previous vaginal deliveries, the last vaginal deliveries [address] Reynoso complicated by significant shoulder dystocia History of Any Multi-Drug Resistant Organisms: None Reported Past Surgical History: No Surgical Hx Reported Past Anesthesia/Blood Transfusion Reactions: No Reported Reaction Smoking Status: Former smoker Past Alcohol Use History: None Reported Past Drug Use History: Marijuana - Past Family History Mother Family Medical History: No Reported History Medications and Allergies Home Medications Medication Instructions Recorded Confirmed Type Vit No.179/Iron/Folic 1 tab PO DAILY 07/03/22 09/18/22 History [ Tablet] Allergies Allergy/AdvReac Type Severity Reaction Status Date / Time No Known Allergies Allergy Verified 09/18/22 08:30 Exam Intake and Output 09/17/22 09/18/22 09/18/22 23:59 06:59 14:59 Other: Weight 90.718 kg - OBG Physical Exam Abdomen: bowel sounds normal, no diffuse tenderness, no bruit present, no guarding noted, no hepatomegaly, no splenomegaly, no mass Vulva: both: normal Vagina: normal moisture, no discharge Cervix: no lesion (1 cm per RN), no discharge Uterus: enlarged Results Result Diagrams: 09/18/22 09:15 Abnormal Lab Results - Last 24 Hours (Table) 09/18/22 Range/Units 09:15 WBC 12.6 H (3.8-10.6) k/uL Neutrophils # 9.3 H (1.3-7.7) k/uL Assessment and Plan Assessment: This is a 27-year-old 4 para 2 female 40-3/7 weeks by 28 week ultrasound who presents with spontaneous rupture membranes. Review of her delivery history and previous records from last shows significant shoulder dystocia. I did have a long discussion with the patient and her partner and currently recommendations that do indicate she needs a section for delivery to prevent injury. I discussed the benefits and risks. Patient wishes to proceed with primary section for delivery. Patient was s tands the surgery: Risks including risks of infection, bleeding, possible injury bowel, bladder, vessels, and/or other organs. All the patient's questions are answered written consent obtained. (1) Post-dates Current Visit: Yes Status: Acute Code(s): O48.0 - POST-TERM SNO MED Code(s): 74538866 (2) History of shoulder dystocia in prior Current Visit: Yes Status: Acute Code(s): Z87.59 - PERSONAL HISTORY OF COMP OF PREG, CHLDBRTH AND THE PUERP SNOMED Code(s): 535707637 (3) No care in current Current Visit: Yes Status: Acute Code(s): O09.30 - SUPRVSN OF PREG W INSUFFICIENT ANTENAT CARE, UNSP TRIMESTER SNOMED Code(s): 714697017
[2022-09-18 10:14] LABS: Amphetamine Screen,Urine Not Detected (NotDetected); Barbiturate Screen,Urine Not Detected (NotDetected); Benzodiazepines Screen,Urine Not Detected (NotDetected); Cocaine Screen,Urine Not Detected (NotDetected); Methadone Screen, Urine Not Detected (NotDetected); Opiate Screen,Urine Not Detected (NotDetected); Oxycodone Screen, Urine Not Detected (NotDetected); Phencyclidine Screen,Urine Not Detected (NotDetected); Tricyclic Antidepressant,Urine Not Detected (NotDetected); Urn Cannabinoid Scrn Detected (NotDetected)
[2022-09-18] MEDS ORDERED: MORPHINE SULFATE (PF) 0.3 MG/0.3 ML SYR ONE ×2 (10:26)
[2022-09-18] MEDS ORDERED: OXYTOCIN 30 UNITS/500 ML NS BAG IV ONE ×2 (10:26)
[2022-09-18] MEDS ORDERED: ONDANSETRON 4 MG/2 ML VIAL ONE ×2 (10:26)
[2022-09-18] MEDS ORDERED: NALBUPHINE 10 MG/ML (1 ML AMP) ONE ×2 (10:26)
[2022-09-18] MEDS ORDERED: ePHEDrine 50 MG/ML 1 ML VIAL ONE ×2 (10:26)
[2022-09-18] MEDS ORDERED: KETOROLAC 15 MG/ML 1 ML VIAL ONE ×2 (10:26)
[2022-09-18] MEDS ORDERED: METOCLOPRAMIDE 5 MG/ML 2 ML VIAL IVP PRN (11:16)
[2022-09-18] MEDS ORDERED: diphenhydrAMINE 50 MG/ML 1 ML VIAL IVP PRN (11:16)
[2022-09-18] MEDS ORDERED: NALOXONE 0.4 MG/ML 1 ML VIAL IV PRN (11:16)
[2022-09-18] MEDS ORDERED: ONDANSETRON 4 MG/2 ML VIAL IVP PRN (11:16)
[2022-09-18] MEDS ORDERED: ZOLPIDEM 5 MG TAB PO PRN (11:16)
[2022-09-18] MEDS ORDERED: LANOLIN CREAM 5 GM TUBE TOPICAL PRN (11:16)
[2022-09-18] MEDS ORDERED: SIMETHICONE 80 MG CHEWABLE PO PRN (11:16)
[2022-09-18] MEDS ORDERED: diphenhydrAMINE 25 MG CAP PO PRN (11:16)
--- NOTE | 2022-09-18 11:27 | P.OP ---
Date of Procedure: 09/18/22 Preoperative Diagnosis: #1: 40-3/7 week intrauterine . #2: No care. #3: Previous shoulder dystocia. #4: Spontaneous rupture membranes. Postoperative Diagnosis: Same, nuchal cord 1 Procedure(s) Performed: Primary low transverse section Anesthesia: spinal Surgeon: Juan White Transfer And Pumphouse Operator #1: Sveta Huang Estimated Blood Loss (ml): 800 Pathology: other (Placenta) Condition: stable Disposition: floor Indications for Procedure: Please see dictated H&P for intimate details of this patient's admission. In brief summary this is a 27-year-old 4 para 2 female 40-3/7 weeks gestation admitted to labor and delivery complaints of gush of fluid earlier this morning. Patient's had no care and reviewing her records had a history of a significant shoulder dystocia with her last delivery. I discussed this with the patient and did review her records we recommend that she proceed with section due to increased risk of shoulder dystocia with this delivery. Patient I did discuss the fact that the size of the baby and unfortunately is not definitively helpful in predicting it, however previous shoulder dystocia is a significant risk factor. Patient requested to proceed with section. I did discuss the surgery and risks and risks of infection, bleeding, possible injury bowel, bladder, vessels, and other organs. All the patient's questions are answered and a written consent is obtained. Operative Findings: This is a vigorous viable male Apgars were 8 and 8 delivery time was 1044 hrs. Infant grossly appeared normal and weighed 3550 g. Description of Procedure: This patient has a Lowry catheter placed to straight drain. She subsequently taken to the operating room where after the appropriate timeout spinal anesthet ic is achieved is administered without incident. With adequate level of anesthesia she has abdominal prep and drape. Scalpels then taken and a Pfannenstiel skin incision is made. A second scalpel is taken down the fascia the fascia scored with a knife. Fascial incision extended bilaterally using the Browning scissors. Fascia is then dissected off the rectus muscles sharply. Rectus muscles were then the peritoneum identified and entered sharply. Peritoneal incision extended superior and inferior without difficulty. Bladder blade is then placed. Bladder peritoneum was taken off the lower uterine segment sharply. Scalpels then taken low transverse uterine incision is then made. Using a hemostat I into the uterine cavity bluntly. There is loss of clear fluid. This incision is extended bluntly. 's head is then guided through the incision with fundal pressure. Mouth and nares are bulb suctioned. There is a nuchal cord 1 which is reduced. With more fundal pressure we then deliver the anterior and posterior shoulder and rest this infant's body. This is a vigorous viable male infant Apgars are 8 and 8 delivery time was 1044 hrs. Infant has spontaneous respirations and good cry and grossly appears normal. After delivery of the infant the umbilical cord is doubly clamped and cut and appears to be trivascular. The placenta is then manually extracted intact. The uterus is then externalized and uterine incision demarcated with Boateng clamps. The uterus is then closed using 0 Vicryl running locked fashion 2 layers. Additional [id number] sutures are placed on the left side for good hemostasis. This done the bladder peritoneum was then reapproximated using a 3- 0 Vicryl running fashion. Excess fluid is removed from the abdomen and pelvis. Uterus, tubes, ovaries appear normal for term gestation. Uterus placed back into the abdomen. The parietal peritoneum was then identified and closed using 0 Vicryl running fashion. The rectus muscles are reapproximated using 0 Vicryl interrupted fashion. Fascial incision is then closed using 0 PDS. Fascial incision is intact and hemostatic. Subcutaneous tissues and closed using a 3-0 Vicryl. Skin is and closed using homa. All counts are correct 3. There are no complications. Infant and mother are stable in the birthing suite.
--- NOTE | 2022-09-18 11:28 | P.MSEPDOC ---
Presenting Problems - Arrival Data Date of Arrival on Unit: 09/18/22 Time of Arrival on Unit: 08:55 Mode of Transport: Ambulatory - Complaint OB-Reason for Admission/Chief Complaint: Rule Out SROM Comment: pt presents to triage for SROM at 0730 this am, still leaking clear fluid Medical History - Information : 4 Para: 2 Term: 2 : 0 Abortions: Spontaneous or Elective: 1 Number of Living Children: 2 - Gestational Age Gestational Age by SPENCER (wks/days): 40 Weeks and 3 Days - History Complications: No Care Comment: previous shoulder dystocia Review of Systems - Review of Systems Constitutional: No problems Breast: No problems ENT: No problems Cardiovascular: No problems Respiratory: No problems Gastrointestinal: No problems Genitourinary: No problems Musculoskeletal: No problems Neurological: No problems Skin: No problems Vital Signs - Temperature Temperature: 96.4 F Temperature Source: Temporal Artery Scan - Pulse Right Brachial Pulse Rate: 91 Pulse Assessment Method: Automatic Cuff - Respirations Respiratory Rate: 17 Oxygen Delivery Method: Room Air O2 Sat by Pulse Oximetry: 97 - Blood Pressure Right Arm Blood Pressure: 126/80 Blood Pressure Mean: 95 Blood Pressure Source: Automatic Cuff Medical Screen Scoring - Cervical Exam Dilation (cm): 1.5 Effacement (%): 50 Station: -3 Membranes: Intact - Assessment - Baby A Baseline FHR: 125 Heart Rate - NICHD Category: Category I (Normal) NST: Reactive Physician Notification - Physician Notified Physician Notified Date: 09/18/22 Physician Notified Time: 08:55 Physician: Juan White New Order Received: Yes - Notification Comment Comment: admit for labor Maternal Triage Index - Maternal Triage Index Presenting for scheduled procedure w/no complaint: No - Stat/Priority 1 Stat Priority 1: No - Urgent/Priority 2 Urgent Priority 2: No - Prompt/Priority 3 Prompt Priority 3: Yes Criteria Met for Priority 3: pt presents to triage for SROM at 0730 this am, still leaking clear fluid Disposition - Disposition OB Disposition: Admit I agree with the RN Medical Screening Exam: Yes Case reviewed; plan agreed upon as documented in EMR&OBIX.: Yes Diagnosis: RELATED CONDITIONS, UNSPECIFIED, THIRD TRIMESTER
[2022-09-18] MEDS ORDERED: OXYTOCIN 30 UNITS/500 ML NS 30 UNIT in SALINE 1 500ML.BAG IV SCH (11:30)
[2022-09-18] MEDS: LACTATED RINGERS 1,000 ML IV SCH ×2 (13:23→21:16)
[2022-09-18] MEDS: KETOROLAC 15 MG/ML 1 ML VIAL IVP SCH (16:02)
[2022-09-18] MEDS: ACETAMINOPHEN TAB 500 MG TAB PO SCH (21:15)
[2022-09-18] MEDS: SENNOSIDES-DOCUSATE SODIUM 1 EACH TAB PO SCH (21:16)
[2022-09-18 21:36] VITALS: RESP 16
[2022-09-19] MEDS: ACETAMINOPHEN TAB 500 MG TAB PO SCH ×5 (02:55→21:07)
[2022-09-19] MEDS: KETOROLAC 15 MG/ML 1 ML VIAL IVP SCH ×2 (02:55→03:16)
[2022-09-19 06:23] LABS: Basophils % (A) 0 %; Eosinophils # (A) 0.1 k/uL (0-0.7); Eosinophils % (A) 1 %; HCT 37.4 % (34.0-46.0); HGB 13.1 gm/dL (11.4-16.0); Lymphocytes # (A) 2.1 k/uL (1.0-4.8); Lymphocytes % (A) 14 %; MCH 31.6 pg (25.0-35.0); MCHC 35.1 g/dL (31.0-37.0); MCV 89.9 fL (80.0-100.0); Mean Platelet Volume 9.7; Monocytes # (A) 0.7 k/uL (0-1.0); Monocytes % (A) 5 %; Neutrophils # (A) 11.4 k/uL (1.3-7.7); Neutrophils % (A) 78 %; Platelet Count 257 k/uL (150-450); RBC 4.16 m/uL (3.80-5.40); RDW 12.9 % (11.5-15.5); WBC 14.7 k/uL (3.8-10.6)
--- NOTE | 2022-09-19 06:29 | P.PNOBGPC ---
Subjective - Subjective Patient reports: Reports appetite normal, Reports voiding normally, Reports pain well controlled, Reports ambulating normally : doing well Objective - Vital Signs Latest vital signs: Vital Signs Temp Pulse Resp BP Pulse Ox 09/19/22 03:40 98.2 F 65 16 108/63 97 09/19/22 00:00 98.1 F 69 16 118/67 09/18/22 20:00 97.5 F L 58 L 16 111/69 99 09/18/22 16:00 97.5 F L 59 L 18 120/81 96 09/18/22 13:17 94.9 F L 66 16 110/71 95 09/18/22 12:47 67 18 122/78 09/18/22 12:17 70 17 120/79 98 09/18/22 12:02 74 17 111/61 09/18/22 11:47 80 16 114/69 100 09/18/22 11:32 73 17 111/58 93 L 09/18/22 11:28 96.4 F L 91 17 126/80 97 09/18/22 11:17 96.4 F L 70 17 103/61 97 09/18/22 11:16 97 09/18/22 10:20 96.4 F L 91 17 126/80 97 09/18/22 10:15 96.4 F L 91 17 126/80 97 Intake and Output 09/18/22 09/18/22 09/19/22 14:59 22:59 06:59 Output Total 970 650 750 Balance -970 -650 -750 Output: Urine 100 500 750 Uretheral (Lowry) 300 Emesis 150 Output, Quantitative 870 Blood Loss Other: Voiding Method Indwelling Catheter Indwelling Catheter Weight 90.718 kg - Exam Lungs: bilateral: normal Chest: Normal S1, Normal S2 Extremities: Present: normal Abdomen: Present: normal appearance, soft. Absent: distention, tenderness Incision: Present: normal, dry, intact Uterus: Present: normal, firm - Labs Labs: Abnormal Lab Results - Last 24 Hours (Table) 09/18/22 09/18/22 09/19/22 Range/Units 09:15 09:55 05:52 WBC 12.6 H 14.7 H (3.8-10.6) k/uL Neutrophils # 9.3 H 11.4 H (1.3-7.7) k/uL U Marijuana (THC) Screen Detected H (NotDetected) Assessment and Plan Assessment: Postoperative day #1. Patient is resting without new complaints. Vital signs are stable she's afebrile. Uterus is firm nontender and her incision is intact and dry. CBC today was normal. Patient is ambulating and urinating. Plan today is to advance her diet and continue routine postoperative care. (1) Post-dates Current Visit: Yes Status: Acute Code(s): O48.0 - POST-TERM SNOMED Code(s): 34086014 (2) History of shoulder dystocia in prior Current Visit: Yes Status: Acute Code(s): Z87.59 - PERSONAL HISTORY OF COMP OF PREG, CHLDBRTH AND THE PUERP SNOMED Code(s): 696008510 (3) No care in current Current Visit: Yes Status: Acute Code(s): O09.30 - SUPRVSN OF PREG W INSUFFICIENT ANTENAT CARE, UNSP TRIMESTER SNOMED Code(s): 290657334
--- NOTE | 2022-09-19 06:49 | P.PN ---
Progress Note - Text 09/14/22 637am 27-year-old female status post with spinal Duramorph. Patient seen and evaluated for postop pain control, patient has a VAS of 2 with no complains of nausea vomiting. She has pruritus which is subsided by the end of the day.
[2022-09-19] MEDS: LACTATED RINGERS 1,000 ML IV SCH (07:51)
[2022-09-19] MEDS: SENNOSIDES-DOCUSATE SODIUM 1 EACH TAB PO SCH ×2 (07:52→19:36)
[2022-09-19] MEDS: IBUPROFEN 600 MG TAB PO SCH ×3 (11:09→23:46)
[2022-09-20] MEDS: IBUPROFEN 600 MG TAB PO SCH ×2 (05:01→11:44)
[2022-09-20] MEDS ORDERED: IBUPROFEN 600 MG TAB PO SCH (06:00)
--- NOTE | 2022-09-20 06:28 | P.PNOBGPC ---
Subjective - Subjective Patient reports: Reports appetite normal, Reports voiding normally, Reports pain well controlled, Reports ambulating normally : doing well Objective - Vital Signs Latest vital signs: Vital Signs Temp Pulse Resp BP Pulse Ox 09/20/22 00:00 98.2 F 72 16 102/66 97 09/19/22 16:00 81 16 118/78 96 09/19/22 08:00 97.8 F 77 16 118/75 99 Intake and Output 09/19/22 09/19/22 09/20/22 14:59 22:59 06:59 Intake Total 300 Output Total 800 Balance -800 300 Intake: Oral 300 Output: Urine 800 Other: # Voids 1 1 1 - Exam Lungs: bilateral: normal Chest: Normal S1, Normal S2 Extremities: Present: normal Abdomen: Present: normal appearance, soft. Absent: distention, tenderness Incision: Present: normal, dry, intact Uterus: Present: normal, firm Assessment and Plan Assessment: Postoperative day #2. Patient is resting without complaints and wishes to go home. Vital signs are stable she is afebrile. Uterus is firm nontender and her incision is intact and dry. CBC yesterday was normal. Patient is ambulating, urinating, tolerating regular diet. Plan today is to continue routine postopera tive care discharge home later this morning. (1) Post-dates Current Visit: Yes Status: Acute Code(s): O48.0 - POST-TERM SNOMED Code(s): 89068886 (2) History of shoulder dystocia in prior Current Visit: Yes Status: Acute Code(s): Z87.59 - PERSONAL HISTORY OF COMP OF PREG, CHLDBRTH AND THE PUERP SNOMED Code(s): 903319067 (3) No care in current Current Visit: Yes Status: Acute Code(s): O09.30 - SUPRVSN OF PREG W INSUFFICIENT ANTENAT CARE, UNSP TRIMESTER SNOMED Code(s): 885814418
--- NOTE | 2022-09-20 06:34 | P.DS ---
Providers Date of admission: 09/18/22 09:41 Expected date of discharge: 09/20/22 Attending physician: Juan White Primary care physician: Stated None - Discharge Diagnosis(es) (1) Post-dates Current Visit: Yes Status: Acute (2) History of shoulder dystocia in prior Current Visit: Yes Status: Acute (3) No care in current Current Visit: Yes Status: Acute Hospital Course: Please see dictated H&P for intimate details of this patient's admission. In brief summary is a pleasant 27-year-old 4 para 2 female 40-3/7 weeks gestation presented to labor and delivery with no care. Patient has a history of significant shoulder dystocia with her previous therefore is recommended she proceed with section for delivery. Patient undergoes primary section for viable male infant. Please see dictated operative note. Postoperative patient does well and on postoperative 2 felt be stable for discharge home follow up with me in 1 week Procedures: Primary low transverse section Patient Condition at Discharge: Good Plan - Discharge Summary New Discharge Prescriptions: New Ibuprofen [Motrin] 600 mg PO Q6H #30 tab oxyCODONE HCL [OxyIR] 5 mg PO Q4HR PRN #18 tab PRN Reason: Pain Scale 4 - 6 No Action Vit No.179/Iron/Folic [ Tablet] 1 tab PO DAILY Discharge Medication List Vit No.179/Iron/Folic [ Tablet] 1 tab PO DAILY 07/03/22 [History] Ibuprofen [Motrin] 600 mg PO Q6H #30 tab 09/20/22 [Rx] oxyCODONE HCL [OxyIR] 5 mg PO Q4HR PRN #18 tab 09/20/22 [Rx] Follow up Appointment(s)/Referral(s): Juan White MD [STAFF PHYSICIAN] - 09/28/22 8:30 am (Please see me for a visit as well on 11/03/2022 @9:15 Am) Patient Instructions/Handouts: (DC) Activity/Diet/Wound Care/Special Instructions: No heavy lifting or strenuous activity for 6 weeks. No intercourse or anything per vagina for 6 weeks. Please call if any fever, chills, excessive vaginal bleeding, and/or abdominal pain Discharge Disposition: HOME SELF-CARE
[2022-09-20 08:20] VITALS: BP 113/77; PULSE 87; TEMP 98
[2022-09-20] MEDS: ACETAMINOPHEN TAB 500 MG TAB PO SCH ×2 (08:21→10:49)
[2022-09-20] MEDS: SENNOSIDES-DOCUSATE SODIUM 1 EACH TAB PO SCH (08:22)
== END 2022-09-20 12:45 | disposition home or self-care (01) | DRG 788 ==
LOC: FBPOP 08:17 → UNDOADMIN 08:50 → 4FBP 08:50
PROVIDERS: ADMIT Obstetrics & Gynecology; ATTEND Obstetrics & Gynecology
PROC: 10D00Z1 Extraction of Products of Conception, Low, Open Approach (ICD-10-PCS; principal; 2022-09-18 09:51)
DX: O48.0 Post-term pregnancy (principal); L29.9 Pruritus, unspecified; Z37.0 Single live birth; O69.81X0 Labor and delivery complicated by cord around neck, without compression, not applicable or unspecified; Z3A.40 40 weeks gestation of pregnancy; Z87.59 Personal history of other complications of pregnancy, childbirth and the puerperium; Z87.891 Personal history of nicotine dependence
CPT/HCPCS: 59025; 80306; 84112; 85025; 86850; 86900; 86901; 99213

== ENCOUNTER 2023-02-01 05:52 | Day surgery (SDC) | payer OTHER ==
--- NOTE | 2023-01-31 07:37 | P.HPOB ---
History of Present Illness H&P Date: 01/31/23 Chief Complaint: High-grade cervical dysplasia This patient is a pleasant 27-year-old 4 para 3 female who had a Pap smear that showed ASCUS with high risk HPV. Subsequent colposcopy revealed a negative endocervical curetting but high-grade dysplasia (AMY-2) on 2 ectocervical biopsies. I counseled the patient as to options for treatment she wishes to proceed with LEEP excision of this area. Review of Systems Genitourinary: Reports as per HPI Past Medical History Past Medical History: Asthma Additional Past Medical History / Comment(s): ectopic; 2 previous vaginal deliveries, the last vaginal deliveries [address] Reynoso complicated by significant shoulder dystocia History of Any Multi-Drug Resistant Organisms: None Reported Past Surgical History: Section Past Anesthesia/Blood Transfusion Reactions: No Reported Reaction Past Psychological History: Depression Smoking Status: Former smoker Past Alcohol Use History: None Reported Past Drug Use History: Marijuana - Past Family History Mother Family Medical History: No Reported History Medications and Allergies Home Medications Medication Instructions Recorded Confirmed Type Vit No.179/Iron/Folic 1 tab PO DAILY 07/03/22 09/18/22 History [ Tablet] Ibuprofen [Motrin] 600 mg PO Q6H #30 tab 09/20/22 Rx oxyCODONE HCL [OxyIR] 5 mg PO Q4HR PRN #18 tab 09/20/22 Rx Allergies Allergy/AdvReac Type Severity Reaction Status Date / Time No Known Allergies Allergy Verified 09/18/22 08:30 Exam - OBG Physical Exam Abdomen: bowel sounds normal, no diffuse tenderness, no bruit present, no guarding noted, no hepatomegaly, no splenomegaly, no mass Vulva: both: normal Vagina: normal moisture, no discharge Cervix: no lesion, no discharge Results Cervical biopsy on January 03 showed high-grade dysplasia/AMY-2 of the ectocervix Assessment and Plan Assessment: This is a pleasant 27-year-old 4 para 3 female with high-grade ectocervical dysplasia. Patient desires to proceed with LEEP excision of this area. I did discuss the surgery and risks and risks of infection, bleeding, possible cervical incompetence in future loss. All the patient's questions are answered and a written consent is obtained. (1) AMY II (cervical intraepithelial neoplasia II) Status: Acute Code(s): N87.1 - MODERATE CERVICAL DYSPLASIA SNOMED Code(s): 806897030
[2023-01-31 10:04] VITALS: BMI 25.9
[~2023-02-01 05:52] MED LIST: Pre Op ABX Message 1 EACH MISC MISCELLANE ONE
[2023-02-01] MEDS ORDERED: LIDOCAINE 1% (10MG/ML) FOR IV START INTRADERMA PRN (06:04)
[2023-02-01] MEDS ORDERED: ONDANSETRON 4 MG/2 ML VIAL IVP ONE (06:04)
[2023-02-01] MEDS ORDERED: LACTATED RINGERS 1,000 ML IV SCH (06:04)
[2023-02-01] MEDS ORDERED: DEXAMETHASONE SOD PHOSPHATE 4 MG/ML 1 ML VIAL IV ONE (06:04)
[2023-02-01] MEDS ORDERED: SCOPOLAMINE 1 MG/72 HR PATCH TRANSDERM ONE (06:04)
[2023-02-01] MEDS ORDERED: FERRIC SUBSULFATE (MONSELS) JAR TOPICAL ONE ×2 (06:55→07:13)
[2023-02-01] MEDS ORDERED: KETOROLAC 15 MG/ML 1 ML VIAL ONE (06:55)
[2023-02-01] MEDS ORDERED: LIDOCAINE 2% INJ 20 MG/ML (2 ML VIAL) ONE (06:55)
[2023-02-01] MEDS ORDERED: MIDAZOLAM 2 MG/2 ML VIAL ONE (06:55)
[2023-02-01] MEDS ORDERED: PROPOFOL 10 MG/ML 20 ML VIAL IV ONE (06:55)
[2023-02-01] MEDS ORDERED: fentaNYL (PF) 50 MCG/ML 2 ML AMP ONE (06:55)
[2023-02-01] MEDS ORDERED: IODINE/POTASSIUM IODIDE 14 ML BOTTLE TOPICAL ONE ×2 (06:56→07:13)
[2023-02-01] MEDS ORDERED: HYDROmorphone 0.5 MG/0.5 ML SYRINGE IVP PRN (07:00)
--- NOTE | 2023-02-01 07:33 | P.OP ---
Date of Procedure: 02/01/23 Preoperative Diagnosis: High-grade ectocervical dysplasia Postoperative Diagnosis: Same Procedure(s) Performed: #1: Colposcopy #2: LEEP excision of the ectocervix and endocervix Anesthesia: other (LMA) Surgeon: Juan White Estimated Blood Loss (ml): 10 Urine output (ml): 25 Pathology: other (Ectocervix and endocervix) Condition: stable Disposition: PACU Indications for Procedure: Please see dictated H&P for intimate details of this patient's admission. In brief summary this is a pleasant 27-year-old female who on her Pap smear had an atypical Pap smear and colposcopy showed high-grade dysplasia the ectocervix. I discussed options with the patient we elected proceed with LEEP excision of this area. Patient does understand this procedure and risks and risks of infection, bleeding, possible cervical incompetence in future loss. All the patient's questions are answered and a written consent is obtained. Operative Findings: This patient had some acetowhite changes is demarcated in the office Description of Procedure: This patient is taken to the operating room where she is laid in the supine position. She subsequently undergoes general anesthesia without incident. With an adequate level of anesthesia she's placed in dorsal lithotomy position. She has a vaginal perineal prep and drape. At this time the bladder is drained for 25 mL of clear urine. The coated speculum was then placed into the vagina. The cervix is visualized and colposcopy is performed with Lugol's solution. With this completed, I then take a large LEEP loop and one pass at a 70/60 cautery cutting setting I removed the transformation zone and area of the ectocervix. With this done the small LEEP loop is used to remove a small portion of the endocervix. I did my best to preserve as much tissue as possible because patient does have a possibility of having another baby in the future. Cauterization is then done of the endocervical and ectocervical margins. Excellent hemostasis is noted. Monsel solution is applied for added hemostasis. At this point the procedure is ended. The speculum was removed. All counts correct 3. There are no complications. Patient is awakened from anesthesia and taken recovery room in satisfactory condition.
[2023-02-01 07:43] VITALS: TEMP 97
[2023-02-01 07:51] VITALS: RESP 16
[2023-02-01 08:26] VITALS: BP 110/73; PULSE 58
== END 2023-02-01 08:47 | disposition home or self-care (01) ==
LOC: OR 05:52
PROVIDERS: ATTEND Obstetrics & Gynecology
DX: N87.1 Moderate cervical dysplasia (principal); J45.909 Unspecified asthma, uncomplicated; Z87.891 Personal history of nicotine dependence; F12.90 Cannabis use, unspecified, uncomplicated; Z79.1 Long term (current) use of non-steroidal anti-inflammatories (NSAID); Z79.51 Long term (current) use of inhaled steroids; Z79.899 Other long term (current) drug therapy
CPT/HCPCS: 81025; 57461; J2250; J1100; J2405; J3010; J1885; J2704; J2001; 88305; 88307